=== PATIENT | male | born 1950 | race Caucasian/White ===

== ENCOUNTER 2017-04-14 08:26 | Day surgery (SDC) | payer MEDICARE ==
[~2017-04-14] VITALS: Ht 165.1 cm; Wt 58.0 kg
[~2017-04-14 08:26] MED LIST: ADVAIR 100-501 EACH INH; ATROVENT I0.5 MG/2.5 INH; CARDIZEM30 MG PO; COREG12.5 MG PO; ECOTRIN325 MG PO; K-TAB ER20 MEQ PO; LANOXIN (DIGI125 MCG PO; LANOXIN (DIGI250 MCG PO; LASIX40 MG PO; LEVOTHROID (SY50 MCG PO; OMEPRAZOLE40 MG PO; POTASSIUM CHLO20 ME1 PO; PREVACID30 M1 FT; SIMVASTATIN40 MG PO
== END 2017-04-14 11:55 | disposition disaster alternative care site (69) ==
LOC: GEND 08:26 → GPOC 13:00
PROC: 0DB98ZX Excision of Duodenum, Via Natural or Artificial Opening Endoscopic, Diagnostic (ICD-10-PCS; principal; 2017-04-14)
PROC: 0DB68ZX Excision of Stomach, Via Natural or Artificial Opening Endoscopic, Diagnostic (ICD-10-PCS; 2017-04-14)
PROC: 0DB58ZX Excision of Esophagus, Via Natural or Artificial Opening Endoscopic, Diagnostic (ICD-10-PCS; 2017-04-14)
DX: K31.89 Other diseases of stomach and duodenum (principal); K44.9 Diaphragmatic hernia without obstruction or gangrene; K74.60 Unspecified cirrhosis of liver; M19.90 Unspecified osteoarthritis, unspecified site; I10 Essential (primary) hypertension; E78.00 Pure hypercholesterolemia, unspecified; I48.91 Unspecified atrial fibrillation; J44.9 Chronic obstructive pulmonary disease, unspecified; G47.30 Sleep apnea, unspecified; E78.5 Hyperlipidemia, unspecified; Z87.891 Personal history of nicotine dependence; Z85.818 Personal history of malignant neoplasm of other sites of lip, oral cavity, and pharynx; Z98.890 Other specified postprocedural states; Z79.899 Other long term (current) drug therapy; Z91.041 Radiographic dye allergy status
CPT/HCPCS: J2001; J7030